=== PATIENT | female | born 1955 | race Caucasian/White ===

== ENCOUNTER → 2019-11-09 14:09 | Outpatient (BNVA) | payer OTHER, SELFPAY | PROVIDERS: PCP Family Medicine; Visit Provider Psychiatry & Neurology Psychiatry | DX: F43.10 Post-traumatic stress disorder, unspecified (principal) | CPT/HCPCS: 80061; 83036; 83721 ==

== ENCOUNTER → 2019-12-08 14:32 | Outpatient (BNVA) | payer MEDICARE, MEDICAID, SELFPAY ==
[2019-12-08 14:31] VITALS: BP 145/94; BMI 36.5
== END ==
PROVIDERS: Visit Provider Family Medicine
DX: I10 Essential (primary) hypertension (principal); E11.9 Type 2 diabetes mellitus without complications; M25.561 Pain in right knee; M25.562 Pain in left knee
CPT/HCPCS: 80053; 82043; 85025

== ENCOUNTER 2019-12-20 13:10 | Outpatient (RCR) | payer MEDICARE, MEDICAID, SELFPAY ==
[2019-12-08 14:31] VITALS: BP 145/94; BMI 36.5
== END 2020-01-08 23:59 | disposition home or self-care (01) ==
LOC: SPT 13:10
PROVIDERS: Referring Provider Family Medicine; Visit Provider Family Medicine
DX: M25.561 Pain in right knee (principal); M25.562 Pain in left knee
CPT/HCPCS: 97110; 97162

== ENCOUNTER → 2019-12-26 14:00 | Outpatient (BNVA) | payer MEDICARE, SELFPAY ==
[2019-12-08 14:31] VITALS: BP 145/94; BMI 36.5
== END ==
PROVIDERS: Visit Provider Psychiatry & Neurology Psychiatry
DX: F33.1 Major depressive disorder, recurrent, moderate (principal); F41.9 Anxiety disorder, unspecified
CPT/HCPCS: 99204

== ENCOUNTER → 2020-01-01 13:47 | Outpatient (BNVA) | payer MEDICARE, SELFPAY ==
[2019-12-08 14:31] VITALS: BP 145/94; BMI 36.5
== END ==
PROVIDERS: Visit Provider Family Medicine
DX: R80.9 Proteinuria, unspecified (principal)
CPT/HCPCS: 82043

== ENCOUNTER → 2020-01-18 14:09 | Outpatient (BNVA) | payer MEDICARE, SELFPAY ==
[2019-12-08 14:31] VITALS: BP 145/94; BMI 36.5
== END ==
PROVIDERS: Visit Provider Family Medicine
DX: E78.5 Hyperlipidemia, unspecified (principal); I10 Essential (primary) hypertension
CPT/HCPCS: 80053

== ENCOUNTER → 2020-02-27 08:34 | Outpatient (BNVA) | payer MEDICARE, SELFPAY ==
[2019-12-08 14:31] VITALS: BP 145/94; BMI 36.5
== END ==
PROVIDERS: Visit Provider Psychiatry & Neurology Psychiatry
DX: M17.11 Unilateral primary osteoarthritis, right knee (principal); E11.65 Type 2 diabetes mellitus with hyperglycemia; F17.211 Nicotine dependence, cigarettes, in remission; F33.1 Major depressive disorder, recurrent, moderate; F41.9 Anxiety disorder, unspecified
CPT/HCPCS: 83036; 99204

== ENCOUNTER → 2020-04-02 08:13 | Outpatient (BNVA) | payer MEDICARE, MEDICAID, SELFPAY ==
[2019-12-08 14:31] VITALS: BP 145/94; BMI 36.5
== END ==
PROVIDERS: Visit Provider Psychiatry & Neurology Psychiatry
DX: F33.1 Major depressive disorder, recurrent, moderate (principal); F41.9 Anxiety disorder, unspecified
CPT/HCPCS: 99214

== ENCOUNTER → 2020-05-23 12:10 | Outpatient (BNVA) | payer MEDICARE, MEDICAID, SELFPAY ==
[2019-12-08 14:31] VITALS: BP 145/94; BMI 36.5
== END ==
PROVIDERS: Visit Provider Family Medicine
DX: F33.1 Major depressive disorder, recurrent, moderate (principal); F41.9 Anxiety disorder, unspecified
CPT/HCPCS: 99214; 87635

== ENCOUNTER 2020-05-28 13:14 | Outpatient (CLI) | payer MEDICARE, MEDICAID, SELFPAY ==
[2019-12-08 14:31] VITALS: BP 145/94; BMI 36.5
--- NOTE | 2020-05-28 13:21 | CT_ITS ---
WS: [id number] LDCT LUNG CANCER SCREENING TECHNIQUE: Noncontrast CT of the chest with coronal and sagittal reformatted images. CLINICAL INFORMATION: HX OF TOBACCO USE COMPARISON: None. DLP: 59.73 mGy.cm DIvol: 1.[address] scans at [facility] use at least one of these dose optimization techniques: automat ed exposure control; mA and/or kV adjustment per patient size (includes targeted exams where dose is matched to clinical indication); or iterative reconstruction. FINDINGS: Mild chronic emphysematous changes. No acute pulmonary infiltrates. No focal pneumonia or pleural flu id. Numerous subcentimeter pulmonary nodules in both lungs more prominent in the mid and lower lungs bilaterally. Largest nodules measure 5 to 6 mm. Small amount of hazy infiltrate or atelectasis in the right lower lobe medially. Aortic calcification. No mediastinal or hilar lymphadenopathy. Coronary calcification. No axillary ly mphadenopathy. Adrenal glands are normal. CT/CT lung screening [id number] IMPRESSION: LUNG-RADS: 3-Probably Benign FOLLOW UP: 6 Month LDCT
--- NOTE | 2020-05-28 14:07 | PFTS_ITS ---
Date of Study:05/28/20 Date of Dictation: MECHANICS: Forced vital capacity (FVC) is normal. Forced expiratory volume in one second (FEV1) is normal. FEV1/FVC is normal. FLOW VOLUME LOOP: Normal. LUNG VOLUMES: Not measured DIFFUSING CAPACITY FOR CARBON MONOXIDE: Not measured. INTERPRETATION: The prebronchodilator spirometry is normal. MTDD
== END 2020-05-28 13:15 | disposition home or self-care (01) ==
LOC: RT 13:18
PROVIDERS: PCP Family Medicine; Visit Provider Family Medicine
DX: Z12.2 Encounter for screening for malignant neoplasm of respiratory organs (principal); Z87.891 Personal history of nicotine dependence; I70.0 Atherosclerosis of aorta
CPT/HCPCS: 71271; 94010

== ENCOUNTER → 2020-06-04 14:09 | Outpatient (BNVA) | payer MEDICARE, MEDICAID, SELFPAY ==
[2019-12-08 14:31] VITALS: BP 145/94; BMI 36.5
== END ==
PROVIDERS: PCP Family Medicine; Referring Provider Family Medicine; Visit Provider Orthopaedic Surgery
DX: M54.9 Dorsalgia, unspecified (principal); S83.006A Unspecified dislocation of unspecified patella, initial encounter; X58.XXXA Exposure to other specified factors, initial encounter; M17.11 Unilateral primary osteoarthritis, right knee; M48.062 Spinal stenosis, lumbar region with neurogenic claudication
CPT/HCPCS: 72110

== ENCOUNTER → 2020-06-19 15:20 | Outpatient (BNVA) | payer MEDICARE, MEDICAID, SELFPAY ==
[2019-12-08 14:31] VITALS: BP 145/94; BMI 36.5
== END ==
PROVIDERS: PCP Family Medicine; Referring Provider Orthopaedic Surgery; Visit Provider Orthopaedic Surgery
DX: M25.561 Pain in right knee (principal); M25.562 Pain in left knee; M17.0 Bilateral primary osteoarthritis of knee
CPT/HCPCS: 73560; 73565

== ENCOUNTER 2020-06-25 14:40 | Outpatient (CLI) | payer MEDICARE, MEDICAID, SELFPAY ==
[2019-12-08 14:31] VITALS: BP 145/94; BMI 36.5
--- NOTE | 2020-06-25 14:44 | MM_ITS ---
WS: [id number] BILATERAL DIGITAL SCREENING MAMMOGRAPHY WITH CAD CLINICAL INFORMATION: SCREENING HISTORY: Screening mammogram. No current complaints. COMPARISON: None. TECHNIQUE: Bilateral CC and MLO views. FINDINGS: Scattered fibroglandular densities bilaterally. A few punctate calcifications. No suspicious focal ma ss, asymmetry, calcifications, or architectural distortion. No evidence of malignancy. MM/[place] [id number] IMPRESSION: BI-RADS: 2-Benign FOLLOW UP: 1 Year Follow-up Recommend return to annual screening mammography.
== END 2020-06-25 14:41 | disposition home or self-care (01) ==
LOC: RADSHAW 14:43
PROVIDERS: PCP Family Medicine; Visit Provider Family Medicine
DX: Z12.31 Encounter for screening mammogram for malignant neoplasm of breast (principal)
CPT/HCPCS: 77067

== ENCOUNTER 2020-07-24 10:57 | Emergency (ER) | payer MEDICARE, MEDICAID, SELFPAY ==
[2019-12-08 14:31] VITALS: BP 145/94; BMI 36.5
[2020-07-24] VITALS (12 sets, daily range): BP systolic 102–143; BP diastolic 52–77; PULSE 78–111; RESP 18–95; TEMP 36.6; O2SAT 93–98
--- NOTE | 2020-07-24 11:23 | XR_ITS ---
WS: [id number] Exam: XR chest 1V portable [id number] Date/Time of Exam: 07/24/2020 11:27 AM Reason For Exam: dizziness Comparison 08/05/2007. Findings: The lungs are clear and fully expanded. Costophrenic angles are sharp. No infiltrates. Bronchovascula r relief appears normal. Cardiac silhouette is unremarkable. Bony elements are intact. XR/XR chest 1V portable [id number] IMPRESSION: Unremarkable chest radiograph.
--- NOTE | 2020-07-24 11:25 | ECG_ITS ---
[facility] Test Date: 2020-07-24 Pat Name: Diana Anders Department: Room: Gender: Female Mending Carrier: : 1955 Requested By: Justine Ventura I Order Number: [id number] Lehta MD: Sandi Martinez M.D. Measurements Intervals [place] Rate: 101 P: 13 AL: 175 QRS: 7 QRSD: 85 T: 205 QT: 314 QTc: 408 Interpretive Statements SINUS TACHYCARDIA ST DEVIATION AND MODERATE T-WAVE ABNORMALITY, CONSIDER ANTEROLATERAL ISCHEMIA [-0.1+ mV T WAVE IN V3-V6] ST DEVIATION AND MODERATE T-WAVE ABNORMALITY, CONSIDER INFERIOR ISCHEMIA [-0.1+ mV T WAVE IN II/aVF] No previous ECG available for comparison Electronically Signed On 07-24-2020 17:45:59 CDT by Sandi Martinez M.D. [id number]
--- NOTE | 2020-07-24 11:26 | W.ED.GENADLT ---
HPI - General Adult General: Chief complaint: General Medical Stated complaint: WEAKNESS, N/V, HYPERTENSION Time Seen by Provider: 07/24/20 11:00 Source: patient Mode of arrival: ambulatory Limitations: no limitations History of Present Illness: HPI narrative: This is a 65-year-old female patient with a history of hypertension diabetes mellitus, depression, prior ischemic strokes, who presents to the emergency department with dizziness of 1 weeks duration. She states that the dizziness is intermittent and denies room spinning. It is more often when she rises from a sitting position that she gets dizzy. She denies being outside a lot or being dehydrated. She denies any chest pain, but has some shortness of breath. She denies any long distance traveling. No headaches. MD complaint: Dizziness Onset (ago): week(s) (1) Associated symptoms: Reports nausea, short of breath and weakness; Deny chest pain, confusion, cough, diaphoresis, decreased appetite, dyspnea, fevers/chills, headache(s), malaise, rash, palpitations, seizures, syncope or vomiting Treatments prior to arrival: none Review of Systems General: Reports: 10 or more systems reviewed and unremarkable except in HPI and below Const: Denies: malaise or diaphoresis Card: Denies: chest pain, palpitations or syncope Resp: Denies: dyspnea GI: Reports: nausea; Denies: vomiting Skin/Breast: Denies: rash Neuro: Denies: headache(s) or confusion [facility] ED PFSH: Medical History Anxiety Arthritis COPD (chronic obstructive pulmonary disease) Depression Essential hypertension Post traumatic stress disorder Stroke 2015, 2016 Surgical History History of D&C Family History Father Hypertension CAD (coronary artery disease) Diabetes Mother CAD (coronary artery disease) Hypertension Hyperlipidemia Grandfather Hypertension Hyperlipidemia Sister Diabetes Other Stroke Social History Smoking and tobacco status: former smoker Alcohol intake: former Current gender identity: Female Physical Exam Const: COMMON NORMALS: no acute distress, average body habitus, patient oriented x3, no limitations, healthy appearing, alert and well nourished HENMT: COMMON NORMALS: normocephalic, atraumatic and moist oral mucous membranes HEAD & SCALP: normocephalic and atraumatic Eye: COMMON NORMALS: Equal, round and reactive pupils present, EOMs intact bilaterally, conjunctivae normal and no scleral icterus CONJUNCTIVA: Yes conjunctivae normal PUPIL: Yes Equal, round and reactive pupils present Neck/C-Spine: COMMON NORMALS: no meningeal signs and no JVD Resp: COMMON NORMALS: normal respiratory effort, No retractions, No use of accessory muscles, clear to auscultation bilaterally and percussion normal AUSCULTATION: clear to auscultation bilaterally PERCUSSION: percussion normal Cardio: COMMON NORMALS: no JVD, regular rate, regular rhythm, S1 normal heart sound present, S2 normal heart sound present, No gallops present (Cardio), No clicks present (Cardio), No murmurs present (Cardio), No rub (Cardio) and Peripheral pulses 2+ throughout RATE: regular rate RHYTHM: regular rhythm HEART SOUNDS: S1 normal heart sound present and S2 normal heart sound present PERIPHERAL PULSES: Peripheral pulses 2+ throughout GI: COMMON NORMALS: Normal to inspection, nondistended, normoactive bowel sounds present, Soft to palpation, non-tender, No hepatosplenomegaly present, no masses and no bruits PALPATION: Yes Soft to palpation and Yes No hepatosplenomegaly present Extremity: COMMON NORMALS: normal to inspection, full ROM, capillary refill normal, no calf tenderness and no pedal edema Neuro: COMMON NORMALS: patient oriented x3 SENSORIUM/ORIENTATION: Yes alert MENINGEAL SIGNS: Yes no meningeal signs Course Reevaluation(s): Reevaluation #1: Discussed labs and imaging with her offered hospital admission. She declined. She wants to try outpatient therapy. She has an appointment with her PCP in 1 week. She will follow-up with. She is advised to drink lots of water. Time: 14:13 Vital Signs: Vital signs: Vital Signs Temperature 97.9 F 07/24/20 15:46 Pulse Rate 87 07/24/20 15:46 Respiratory Rate 18 07/24/20 15:46 Blood Pressure 125/66 07/24/20 15:46 Pulse Oximetry 96 07/24/20 15:46 MDM - General Adult MDM Narrative: Medical decision making narrative: 65-year-old female patient who presents to the emergency department with nausea vomiting, weakness. Evaluation in the emergency department showed she has a UTI, acute kidney injury and she is mildly dehydrated. She was given a dose of intravenous ceftriaxone in the emergency department. She also had significantly elevated TSH. Her 2-hour delta troponin was flat. She was offered hospital admission but she declined and wants to follow-up with her primary care provider. Medical Records: Attestation: I reviewed the patient's medical records. Lab Data: Attestation: I reviewed the patient's lab results. Labs: Lab Results 07/24/20 07/24/20 07/24/20 Range/Units 10:45 10:45 10:45 WBC 18.3 H (4.0-10.0) 10^3/ uL RBC 4.87 (4.1-5.3) 10^6/u L Hgb 16.1 H (11.5-15.3) g/dL Hct 45.4 (37.0-47.0) % MCV 93.2 (81-99) fL MCH 33.1 (28.0-34.0) pg MCHC 35.5 (30.0-36.0) g/dL RDW 13.0 (12.1-15.1) % Plt Count 315 (130-400) 10^3/c mm MPV 12.8 H (7.4-10.4) fL Neut % (Auto) 78.8 % Lymph % (Auto) 14.3 % [place] % (Auto) 5.5 % Eos % (Auto) 0.1 % Baso % (Auto) 0.3 % Neut # (Auto) 14.43 H (1.8-7.7) 10^3/u L Lymph # (Auto) 2.6 (0.8-4.8) 10^3/u L [place] # (Auto) 1.0 H (0.2-0.9) 10^3/u L Eos # (Auto) 0.0 (0.0-0.8) 10^3/u L Baso # (Auto) 0.1 (0.0-0.1) 10^3/u L Nucleated RBC % (a uto) 0 % Nucleated RBCs # 0.0 /100WBC Sodium 142 (136-145) mmol/L Potassium 3.6 (3.5-5.1) mmol/L Chloride 99 (98-107) mmol/L Carbon Dioxide 17 L (22-29) mmol/L Anion Gap 29.6 H (5-19) BUN 26 H (8-23) mg/dL Creatinine 1.6 H (0.5-0.9) mg/dL GFR Calculation 32.5 L (90-130) mL/min Glucose 181 H (65-115) mg/dL Calculated Osmolal ity 303 H (285-295) mOsm/k g Calcium 11.1 H (8.5-10.5) mg/dL Total Bilirubin 0.7 (0.15-1.2) mg/dL AST 22 (0-32) U/L ALT 32 (0-33) U/L Alkaline Phosphata se 81 (35-105) IU/L Creatine Kinase 87 (26-192) U/L Troponin T Baselin e 20 H (0-10) ng/L Troponin T 120 Min algaaciq (0-10) ng/L Delta Troponin T (0-10) ABS# C-Reactive Protein 3.3 (0.0-4.9) mg/L NT-Pro-B Natriuret Pep 57 (0-125) pg/mL Total Protein 7.3 (6.6-8.7) g/dL Albumin 4.9 (3.5-5.2) g/dL Globulin 2.4 (1.3-4.6) g/dL Lipase 45 (13-60) U/L TSH 8.64 H (0.27-4.20) uIU/ mL Urine Color (Yellow) Urine Appearance (CLEAR) Urine pH (5-7) Ur Specific Gravit y (1.005-1.030) Urine Protein (Negative) Urine Glucose (UA) (Normal) Urine Ketones (Negative) Urine Blood (Negative) Urine Nitrate (Negative) Urine Bilirubin (Negative) Urine Urobilinogen (Negative) mg/dL Ur Leukocyte Blanca ase (Negative) Urine RBC (0-2) /hpf Urine WBC (0-5) /hpf Ur Squamous Epith Cells (0-5) /hpf Amorphous Sediment Urine Bacteria (NONE) /hpf 07/24/20 07/24/20 Range/Units 12:54 13:42 WBC (4.0-10.0) 10^3/ uL RBC (4.1-5.3) 10^6/u L Hgb (11.5-15.3) g/dL Hct (37.0-47.0) % MCV (81-99) fL MCH (28.0-34.0) pg MCHC (30.0-36.0) g/dL RDW (12.1-15.1) % Plt Count (130-400) 10^3/c mm MPV (7.4-10.4) fL Neut % (Auto) % Lymph % (Auto) % [place] % (Auto) % Eos % (Auto) % Baso % (Auto) % Neut # (Auto) (1.8-7.7) 10^3/u L Lymph # (Auto) (0.8-4.8) 10^3/u L [place] # (Auto) (0.2-0.9) 10^3/u L Eos # (Auto) (0.0-0.8) 10^3/u L Baso # (Auto) (0.0-0.1) 10^3/u L Nucleated RBC % (a uto) % Nucleated RBCs # /100WBC Sodium (136-145) mmol/L Potassium (3.5-5.1) mmol/L Chloride (98-107) mmol/L Carbon Dioxide (22-29) mmol/L Anion Gap (5-19) BUN (8-23) mg/dL Creatinine (0.5-0.9) mg/dL GFR Calculation (90-130) mL/min Glucose (65-115) mg/dL Calculated Osmolal ity (285-295) mOsm/k g Calcium (8.5-10.5) mg/dL Total Bilirubin (0.15-1.2) mg/dL AST (0-32) U/L ALT (0-33) U/L Alkaline Phosphata se (35-105) IU/L Creatine Kinase (26-192) U/L Troponin T Baselin e (0-10) ng/L Troponin T 120 Min algaaciq 15.59 H (0-10) ng/L Delta Troponin T -4.41 L (0-10) ABS# C-Reactive Protein (0.0-4.9) mg/L NT-Pro-B Natriuret Pep (0-125) pg/mL Total Protein (6.6-8.7) g/dL Albumin (3.5-5.2) g/dL Globulin (1.3-4.6) g/dL Lipase (13-60) U/L TSH (0.27-4.20) uIU/ mL Urine Color Yellow (Yellow) Urine Appearance Hazy A (CLEAR) Urine pH 5 (5-7) Ur Specific Gravit y 1.015 (1.005-1.030) Urine Protein Trace (Negative) Urine Glucose (UA) Norm (Normal) Urine Ketones Negative (Negative) Urine Blood 2+ H (Negative) Urine Nitrate Negative (Negative) Urine Bilirubin 1+ H (Negative) Urine Urobilinogen Norm (Negative) mg/dL Ur Leukocyte Blanca ase 2+ H (Negative) Urine RBC 15-25 H (0-2) /hpf Urine WBC 25-40 H (0-5) /hpf Ur Squamous Epith Cells 0-4 H (0-5) /hpf Amorphous Sediment Not Reportable Urine Bacteria 4+ H (NONE) /hpf Imaging Data^: CT Head: Attestation: I personally reviewed and interpreted this imaging study as follows: Radiologist's impression: [address] [id number] Scan ReportSigned Patient: Diana Anders #: [id number]: 6Acct#:[id number]/Sex: 65 / FADM Date: 07/24/20Loc: ERRoom/Bed:Attending Dr: Ordering Provider/Ordering MD: Justine Ventura MD, [facility] Date of Service: 07/24/20 Procedure(s): CT head wo con* [id number] Accession Number(s): [id number] Report Number: [id number] WS: [id number] CT HEAD TECHNIQUE: Noncontrast CT of the head obtained from the skullbase to the vertex. CLINICAL INFORMATION: dizziness, confusion, prior CVA COMPARISON: None. DLP: 957.[address] scans at [facility] use at least one of these dose optimization techniques: automated exposure control; mA and/or kV adjustment per patient size (includes targeted exams where dose is matched to clinical indication); or iterative reconstruction. FINDINGS: No evidence of intracranial hemorrhage or mass effect. Ventricular system and basal cisterns are patent. Mild small vessel changes with mild parenchymal volume loss. No extra-axial fluid collections. No evidence of mass or mass effect. Normal bingham-white differentiation. Paranasal sinuses and mastoid air cells are well aerated. .Normal visualized soft tissues. CT/CT head wo con* [id number] IMPRESSION: 1. No evidence of intracranial hemorrhage or mass effect. 2. Mild small vessel changes. Mild parenchymal volume loss. 3. No acute intracranial findings. Dictated By:Kem Lauren MDSigned By:Kem Lauren MDSigned Date/Time:07/24/20 1204DD/ 1201 CXR: Attestation: I personally reviewed and interpreted this imaging study as follows: Radiologist's impression: [address] [address]HQif ReportSigned Patient: Diana Anders #: [id number]: 1955cct#:[id number]/Sex: 65 / FADM Date: 07/24/20Loc: ERRoom/Bed:Attending Dr: Ordering Provider/Ordering MD: Justine Ventura MD, [facility] Date of Service: 07/24/20 Procedure(s): XR chest 1V portable [id number] Accession Number(s): [id number] Report Number: [id number] WS: [id number] Exam: XR chest 1V portable [id number] Date/Time of Exam: 07/24/2020 11:27 AM Reason For Exam: dizziness Comparison 08/05/2007. Findings: The lungs are clear and fully expanded. Costophrenic angles are sharp. No infiltrates. Bronchovascular relief appears normal. Cardiac silhouette is unremarkable. Bony elements are intact. XR/XR chest 1V portable [id number] IMPRESSION: Unremarkable chest radiograph. Dictated By:Teagueigned By:Kortney Busby Date/Time:07/24/20 1203DD/ 1202 EKG Data^: EKG 1: Attestation: I personally reviewed and interpreted this EKG as follows: EKG interpretation date: 07/24/20 EKG interpretation time: 11:34 Prior EKG tracings: not available for review Interpretation: Sinus tachycardia. Heart rate 101 bpm. To review version in leads II and aVF. Biphasic T wave in leads V3 to V6. Computer generated interpretation: Chest X-Ray 07/24/20 11:23 IMPRESSION: Unremarkable chest radiograph. Head CT 07/24/20 11:30 IMPRESSION: 1. No evidence of intracranial hemorrhage or mass effect. 2. Mild small vessel changes. Mild parenchymal volume loss. 3. No acute intracranial findings. EKG 2: Attestation: I personally reviewed and interpreted this EKG as follows: EKG interpretation date: 07/24/20 EKG interpretation time: 13:34 Prior EKG tracings: available for review Interpretation: Sinus rhythm. Heart rate [address] changes. No significant change from earlier today. Computer generated interpretation: Chest X-Ray 07/24/20 11:23 IMPRESSION: Unremarkable chest radiograph. Head CT 07/24/20 11:30 IMPRESSION: 1. No evidence of intracranial hemorrhage or mass effect. 2. Mild small vessel changes. Mild parenchymal volume loss. 3. No acute intracranial findings. Discharge Plan Discharge Patient Disposition: Home Clinical Impression: JUAN (acute kidney injury), Acute dehydration UTI (urinary tract infection) Qualifiers: Urinary tract infection type: acute cystitis Hematuria presence: with hematuria Qualified Code(s): N30.01 - Acute cystitis with hematuria Leucocytosis Qualifiers: Leukocytosis type: unspecified Qualified Code(s): D72.829 - Elevated white blood cell count, unspecified Hypothyroidism Qualifiers: Hypothyroidism type: unspecified Qualified Code(s): E03.9 - Hypothyroidism, unspecified Condition: Stable Prescriptions: New Augmentin 500-125 mg tablet 1 tab PO BID Qty: 10 RF: 0 Continued atorvastatin 80 mg tablet 80 mg PO BEDTIME@2200 RF: 0 ginseng 100 mg Capsule 100 mg PO DAILY@1000 RF: 0 potassium 99 mg Tablet 99 mg PO DAILY@1000 RF: 0 amlodipine 10 mg tablet 10 mg PO DAILY@2200 RF: 0 hydrochlorothiazide 25 mg Tablet 25 mg PO DAILY@1000 RF: 0 lisinopril 40 mg tablet 40 mg PO DAILY@2200 RF: 0 Voltaren 1 % Gel 2 g TOPICAL QID PRN (Reason: Pain) RF: 0 cyanocobalamin (vitamin B-12) 1,000 mcg/mL Drops 1,000 mcg PO DAILY@1000 RF: 0 venlafaxine 75 mg capsule,extended release 24hr 75 mg PO DAILY@1000 RF: 0 tramadol 50 mg tablet 50 mg PO DAILY@1000 RF: 0 metformin 500 mg tablet extended release 24 hr 500 mg PO BID@1000,2200 RF: 0 aspirin 81 mg Tablet,Chewable 81 mg PO DAILY@1000 RF: 0 Discharge Orders: Discharge ED (Routine); Ordered 07/24/20 Ordered By: Justine Ventura Referrals: Felix Dorado MD [Primary Care Provider] - 4-7 days Discharge Diet: Usual diet Discharge Activity: Increase activity as tolerated Patient Instructions: Dehydration (ED), Acute Kidney Injury (GEN), Urinary Tract Infection in Women (ED), Hypothyroidism (ED) Activity Restrictions/Additional Instructions: Return for any new or worsening symptoms. Follow-up with your primary care provider as scheduled in 1 week for reevaluation of your kidney function to make sure it is improving, there would also see if you need to be started on thyroid medications. Take the antibiotic as prescribed. Drink plenty of water to keep well-hydrated and to improve your kidney function. 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
--- NOTE | 2020-07-24 11:30 | CT_ITS ---
WS: [id number] CT HEAD TECHNIQUE: Noncontrast CT of the head obtained from the skullbase to the vertex. CLINICAL INFORMATION: dizziness, confusion, prior CVA COMPARISON: None. DLP: 957.[address] scans at [facility] use at least one of these dose optimization techniques: automat ed exposure control; mA and/or kV adjustment per patient size (includes targeted exams where dose is matched to clinical indication); or iterative reconstruction. FINDINGS: No evidence of intracranial hemorrhage or mass effect. Ventricular system and basal cisterns are ponce nt. Mild small vessel changes with mild parenchymal volume loss. No extra-axial fluid collections. No evidence of mass or mass effect. Normal bingham-white differentiation. Paranasal sinuses and mastoid air cells are well aerated. .Normal visualized soft tissues. CT/CT head wo con* [id number] IMPRESSION: 1. No evidence of intracranial hemorrhage or mass effect. 2. Mild small vessel changes. Mild parenchymal volume loss. 3. No acute intracranial findings.
[2020-07-24 11:55] LABS: Basophils # 0.1 10^3/uL (0.0-0.1); Basophils % 0.3 %; Eosinophils % 0.1 %; Hematocrit 45.4 % (37.0-47.0); Hemoglobin 16.1 g/dL (11.5-15.3); Lymphocytes # 2.6 10^3/uL (0.8-4.8); Lymphocytes % 14.3 %; Mean Corpuscular HGB Conc 35.5 g/dL (30.0-36.0); Mean Corpuscular Hemoglobin 33.1 pg (28.0-34.0); Mean Corpuscular Volume 93.2 fL (81-99); Mean Platelet Volume 12.8 fL (7.4-10.4); Monocytes % 5.5 %; Neutrophils # 14.43 10^3/uL (1.8-7.7); Neutrophils % 78.8 %; Nucleated Red Blood Cells % 0 %; Platelet Count 315 10^3/cmm (130-400); Red Blood Count 4.87 10^6/uL (4.1-5.3); White Blood Count 18.3 10^3/uL (4.0-10.0)
[2020-07-24 12:10] LABS: Troponin(5th) Baseline 20 ng/L (0-10)
[2020-07-24 12:21] LABS: Alanine Aminotransferase 32 U/L (0-33); Albumin Level 4.9 g/dL (3.5-5.2); Alkaline Phosphatase 81 IU/L (35-105); Anion Gap 29.6 (5-19); Aspartate Amino Transferase 22 U/L (0-32); Blood Urea Nitrogen 26 mg/dL (8-23); C Reactive Protein 3.3 mg/L (0.0-4.9); Calcium 11.1 mg/dL (8.5-10.5); Carbon Dioxide 17 mmol/L (22-29); Chloride 99 mmol/L (98-107); Creatine Phosphokinase 87 U/L (26-192); Globulin 2.4 g/dL (1.3-4.6); Glomerular Filtration Rate 32.5 mL/min (90-130); Glucose 181 mg/dL (65-115); Lipase 45 U/L (13-60); NT Pro B Type Natriuretic Pept 57 pg/mL (0-125); Osmolality Calculated 303 mOsm/kg (285-295); Potassium 3.6 mmol/L (3.5-5.1); Sodium 142 mmol/L (136-145); Thyroid Stimulating Hormone 8.64 uIU/mL (0.27-4.20); Total Bilirubin 0.7 mg/dL (0.15-1.2); Total Protein 7.3 g/dL (6.6-8.7)
--- NOTE | 2020-07-24 13:25 | ECG_ITS ---
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 Measurements Intervals [place] Rate: 86 P: 58 MO: 180 QRS: 0 QRSD: 94 T: 128 QT: 348 QTc: 417 Interpretive Statements SINUS RHYTHM MODERATE T-WAVE ABNORMALITY, CONSIDER ANTEROLATERAL ISCHEMIA [-0.1+ mV T WAVE IN V3-V6] Compared to ECG 07/24/2020 11:34:38 Sinus tachycardia no longer present T-wave abnormality still present Possible ischemia still present Electronically Signed On 07-24-2020 17:51:14 CDT by Sandi Martinez M.D. [id number]
[2020-07-24 13:31] LABS: Troponin 5 2HR 15.59 ng/L (0-10)
[2020-07-24 13:33] LABS: Troponin 5 2HR Delta -4.41 ABS# (0-10)
[2020-07-24 14:07] LABS: Blood Urine 2+ (Negative); Glucose Urine UA Norm (Normal); Ketones Urine Negative (Negative); Protein Urine Trace (Negative); Specific Gravity, Urine 1.015 (1.005-1.030); Urine Appearance Hazy (CLEAR); Urine Color Yellow (Yellow); pH Urine 5 (5-7)
[2020-07-24 14:08] LABS: Add Urine Microscopic? YES; Bilirubin Urine 1+ (Negative); Leukocyte Esterase Urine 2+ (Negative); Nitrate Urine Negative (Negative); Urobilinogen Urine Norm (Negative)
[2020-07-24 14:22] LABS: RBC Urine 15-25 /hpf (0-2); Squamous Epithelial Cell Urine 0-4 /hpf (0-5); WBC Urine 25-40 /hpf (0-5)
[2020-07-24 14:24] LABS: Add Urine Culture? Yes; Bacteria Urine 4+ /hpf
[2020-07-24] MEDS: cefTRIAXone 1,000 MG in sodium chloride 0.9% (plus) 50 ML 100 MG IV (14:26)
== END 2020-07-24 15:35 | disposition home or self-care (01) ==
PROVIDERS: Emergency Provider Family Medicine; PCP Family Medicine
DX: N30.01 Acute cystitis with hematuria (principal); D72.829 Elevated white blood cell count, unspecified; E03.9 Hypothyroidism, unspecified; E86.0 Dehydration; N17.9 Acute kidney failure, unspecified; Z79.82 Long term (current) use of aspirin; Z79.84 Long term (current) use of oral hypoglycemic drugs; J44.9 Chronic obstructive pulmonary disease, unspecified; I10 Essential (primary) hypertension; Z86.73 Personal history of transient ischemic attack (TIA), and cerebral infarction without residual deficits; Z87.891 Personal history of nicotine dependence
CPT/HCPCS: 70450; 71045; 80053; 81001; 82550; 83690; 83880; 84443; 84484; 85025; 86140; 87086; 93005; 96365; 99284; J0696

== ENCOUNTER → 2020-08-27 12:59 | Outpatient (BNVA) | payer MEDICARE, MEDICAID, OTHER, SELFPAY ==
[2019-12-08 14:31] VITALS: BP 145/94; BMI 36.5
== END ==
PROVIDERS: PCP Family Medicine; Visit Provider Psychiatry & Neurology Psychiatry
DX: F33.1 Major depressive disorder, recurrent, moderate (principal); F41.9 Anxiety disorder, unspecified
CPT/HCPCS: 99214

== ENCOUNTER 2020-08-29 13:06 | Outpatient (CLI) | payer MEDICARE, MEDICAID, SELFPAY ==
[2019-12-08 14:31] VITALS: BP 145/94; BMI 36.5
--- NOTE | 2020-08-29 13:18 | USCV_ITS ---
Diana Anders Age: 65 Gender: F : 1955 Exam Date: 08/29/2020 13:26 Ordering Phys: Felix Dorado MD Technologist: Jessenia Phelps Exam Location: [facility] [place] Indication: 2 CVAS Risk Factors: Previous Vascular Surgery: Right Brachial BP: / Left Brachial BP: / Right Left Velocity (cm/s) Spectral Plaque Velocity (cm/s) Spectral Plaque Syst/Diast Broadening Syst/Diast Broadening 120.20/33.10 Prox CCA 135.20/ 47.10 108.10/36.40 Mid CCA 71.90 / 26.00 94.80/ 30.90 Hetro Distal CCA 71.90 / 22.30 Hetro 51.30/ 17.10 Prox ICA 0.00 / 36.55 67.50/ 29.10 Mid ICA 70.90 / 27.35 64.70/ 25.00 Distal ICA 77.00 / 28.65 108.10 ECA 110.40 0.62 ICA/CCA 1.33 Antegrade Vertebral Antegrade 45.40/ 17.60 cm/s 48.50/ 15.70 cm/s Tri Subclavian Bi 117.8 68.50 0 FINDINGS Moderate heterogeneous plaques of the left bifurcation and proximal internal carotid artery. Mild to moderate heterogeneous plaques of the right bifurcation and proximal internal carotid artery. Intimal thickening in the common carotid arteries bilaterally. Antegrade flow in the vertebral arteries bilaterally. Normal Doppler flow velocities in the external carotid and subclavian arteries arteries bilaterally. CONCLUSIONS Moderate heterogeneous plaques of the left bifurcation and proximal internal carotid artery with elevated velocities, consistent with less than 50% stenosis. Mild to moderate heterogeneous plaques of the right bifurcation and proximal internal carotid artery with Doppler features suggesting less than 50% stenosis. No significant stenosis in the vertebral, subclavian or external carotid arteries No previous studies are available for comparison. Dr Sandi Martinez MD [facility] (Electronically Signed) Final Date: 29 August 2020 20:47 S
== END 2020-08-29 13:07 | disposition home or self-care (01) ==
LOC: RAD 13:10
PROVIDERS: PCP Family Medicine; Visit Provider Family Medicine
DX: I63.9 Cerebral infarction, unspecified (principal); I65.23 Occlusion and stenosis of bilateral carotid arteries
CPT/HCPCS: 93880

== ENCOUNTER 2020-10-09 07:46 | Outpatient (CLI) | payer MEDICARE, MEDICAID, SELFPAY ==
[2019-12-08 14:31] VITALS: BP 145/94; BMI 36.5
[2020-10-09 08:08] VITALS: BMI 30.4
--- NOTE | 2020-10-09 08:09 | ECG_ITS ---
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 Interpretive Statements NAME OF STUDY: LEXISCAN SESTAMIBI STRESS TEST INDICATION: Chest Pain, PROCEDURE: At the baseline, the EKG revealed normal sinus rhythm with a poor R wave progression. Nonspecific ST-T changes. Nonspecific IVCD. The baseline blood pressure was 109/67 mm Hg with a heart rate of83 beats/min. Lexiscan was infused over a period of 20 seconds. A total of 0.4 milligrams of Lexiscan was infused. The stress phase was continued for a total of 5 minutes. Heart rate at the end of the stress phase was 99 with a blood pressure 115/64. The EKG at the peak infusion revealed no significant changes. Sestamibi was injected 20 seconds after the Lexiscan infusion. Blood pressure at the end of the recovery phase was 111/67 with a heart rate of 96 per minute. CONCLUSION: 1. No significant EKG changes with the LexiScan infusion 2. No LexiScan induced chest pain or cardiac arrhythmia 3. Normal blood pressure and heart rate response 4. Sestamibi/sestamibi perfusion scan pending; see separate report. Electronically Signed On 10-09-2020 13:45:15 CDT by Sandi Martinez M.D. [id number]
--- NOTE | 2020-10-09 08:10 | NMCV_ITS ---
NM chanel perf SPECT r/s* [id number] Diana Anders Age: 65 Gender: F : 1955 Exam Date: 10/09/2020 08:10 Ordering Phys: Sandi Martinez MD ([email or web address]) Technologist: EFRAÍN Crespo Exam Location: [facility] [place] Indications: SHORTNESS OF BREATH STRESS TEST Please see separate stress test report in [facility] for full findings IMAGE PROTOCOL Rest/Stress 1 Lexiscan Day Radiopharmaceutical Dose (mCi) Administration Site Administered by Rest: Tc-99m 10.9 IV EFRAÍN Crespo Sestamibi Stress:Tc-99m 31.1 IV EFRAÍN Crespo Sestamibi Rest: 09-Oct-2020 60 Discovery 630 Stress: 09-Oct-2020 30 Discovery 630 0.4mg Lexiscan. Supine position only as patient was unable to lay prone. SPECT RESULTS Technical Quality: Excellent Raw Data Analysis: Breast attenuation Image Corrections: No attenuation or motion correction applied Summed Stress Score: 1 Summed Rest Score: 0 Summed Difference Score: 1 PERFUSION FINDINGS Small area of slightly decreased tracer uptake was noted in the mid inferolateral region. Some reversibility was noted in this region. FUNCTIONAL RESULTS (calculated via Gated SPECT) Stress Image LV EF (%): 83 Stress EDV (mL):52 TID: 0.65 Stress ESV (mL):9 FUNCTIONAL FINDINGS: Segmental wall motion analysis revealed no gross wall motion abnormalities IMPRESSIONS 1. Myocardial perfusion imaging revealing a small area of reversible defect in the inferolateral region with the polar plot, suggestive of ischemia in the circumflex distribution . However with the SPECT imaging, no significant reversible defects were noted. 2. Normal LV ejection fraction of 83%. 3. LV wall motion analysis revealing no gross wall motion abnormalities. 4. Normal LV volume. No similar previous studies are available for comparison Dr Sandi Martinez MD FAC (Electronically Signed) Final Date: 09 October 2020 16:48 S
--- NOTE | 2020-10-09 08:10 | USCV_ITS ---
Diana Anders Age: 65 Gender: F : 1955 Exam Date: 10/09/2020 08:19 Ordering Phys: Sandi Martinez MD ([email or web address]) Technologist: Jessenia Phelps [place] [facility] [place]ication: CLEARANCE FOR SURG BP: / HR: 96 Rhythm: Sinus Technical Quality: Adequate MEASUREMENTS (Male / Female) Normal Values 2D ECHO LV Diastolic Diameter PLAX 3.4 cm 4.2 - 5.9 / 3.9 - 5.3 cm LV Systolic Diameter PLAX 2.3 cm LV Chamber Size 3.6 cm IVS Diastolic Thickness 1.2 cm 0.6 - 1.0 / 0.6 - 0.9 cm IVS Systolic Thickness 1.5 cm LVPW Diastolic Thickness 1.5 cm 0.6 - 1.0 / 0.6 - 0.9 cm LVPW Systolic Thickness 1.6 cm RV Chamber Size 3.6 cm LVOT Diameter 2.1 cm LV Ejection Fraction 2D Teich 61.0 % LV Ejection Fraction MOD 2C 28.2 % LV Ejection Fraction 2C AL 28.7 % LA Diameter 2.9 cm LA Width 2.2 cm LA Height 3.4 cm RA Width 3.5 cm RA Height 4.2 cm Aorta at Sinotubular Diameter 3.0 cm M-MODE LV Diastolic Diameter MM 4.0 cm 4.2 - 5.9 / 3.9 - 5.3 cm LV Systolic Diameter MM 2.0 cm LV Ejection Fraction MM Teich 82.8 % IVS Diastolic Thickness MM 1.2 cm 0.6 - 1.0 / 0.6 - 0.9 cm IVS Systolic Thickness MM 1.5 cm LVPW Diastolic Thickness MM 1.6 cm 0.6 - 1.0 / 0.6 - 0.9 cm LVPW Systolic Thickness MM 2.1 cm Aortic Annulus Diameter 3.4 cm LA Ao Ratio MM 0.8 DOPPLER AV Peak Velocity 144.0 cm/s LVOT Peak Velocity 91.0 cm/s AV Area Cont Eq vti 2.9 cm squared AV Area Cont Eq pk 2.2 cm squared MV Area PHT 11.0 cm squared Mitral E to A Ratio 0.9 MV E' Velocity 43.0 cm/s Mitral E to MV E' Ratio 9.9 Mitral E to LV E' Lateral Ratio 8.7 Mitral E to LV E' Septal Ratio 11.7 TR Peak Velocity 165.7 cm/s TR Peak Gradient 11.0 mmHg TR Mean Velocity 115.8 cm/s TR Mean Gradient 6.6 mmHg TR Velocity Time Integral 32.3 cm Right Atrial Pressure 3.0 mmHg Pulmonary Artery Systolic Pressu 14.0 mmHg FINDINGS Left Ventricle Normal left ventricular size and systolic function, EF 61%.mild left ventricular hypertrophy. No regional wall motion abnormalities. Right Ventricle The right ventricle is normal in size and function. Right Atrium The right atrium is normal in size. Left Atrium The left atrium is normal in size. Mitral Valve No gross abnormalities noted Aortic Valve Thickened aortic valve. Tricuspid Valve No gross abnormalities noted Pulmonic Valve Pulmonic valve not well visualized. Pericardium Normal pericardium without effusion. Aorta Normal ascending aorta dimension. CONCLUSIONS Normal left ventricular size and systolic function, EF 61%. Mild left ventricular hypertrophy. No regional wall motion abnormalities. Thickened aortic valve. Normal cardiac chamber sizes. No significant stenotic or regurgitant lesions. There is no pericardial effusion. No previous study is available for comparison. Dr Sandi Martinez MD [facility] (Electronically Signed) Final Date: 09 October 2020 18:41 S
[2020-10-09] MEDS: regadenoson 0.4 Mg/5 ml Syringe IVP (10:10)
[2020-10-09 10:15] VITALS: BP 111/67; PULSE 96
== END 2020-10-09 07:47 | disposition home or self-care (01) ==
PROVIDERS: PCP Family Medicine; Visit Provider Internal Medicine Cardiovascular Disease
DX: R94.31 Abnormal electrocardiogram [ECG] [EKG] (principal); R06.00 Dyspnea, unspecified; R06.02 Shortness of breath; I35.8 Other nonrheumatic aortic valve disorders; R07.9 Chest pain, unspecified
CPT/HCPCS: 78452; 93017; 93306; A9500; J2785

== ENCOUNTER → 2020-10-22 14:25 | Outpatient (BNVA) | payer MEDICARE, MEDICAID, SELFPAY ==
[2019-12-08 14:31] VITALS: BP 145/94; BMI 36.5
== END ==
PROVIDERS: PCP Family Medicine; Visit Provider Psychiatry & Neurology Psychiatry
DX: F33.1 Major depressive disorder, recurrent, moderate (principal); F41.9 Anxiety disorder, unspecified
CPT/HCPCS: 99214

== ENCOUNTER → 2020-10-25 10:01 | Outpatient (BNVA) | payer MEDICARE, MEDICAID, SELFPAY ==
[2019-12-08 14:31] VITALS: BP 145/94; BMI 36.5
== END ==
PROVIDERS: PCP Family Medicine; Visit Provider Surgery
DX: Z20.822 Contact with and (suspected) exposure to COVID-19 (principal); Z12.11 Encounter for screening for malignant neoplasm of colon
CPT/HCPCS: 87635

== ENCOUNTER 2020-10-30 06:34 | Day surgery (SDC) | payer MEDICARE, MEDICAID, SELFPAY ==
[2019-12-08 14:31] VITALS: BP 145/94; BMI 36.5
[2020-10-28 08:41] VITALS: BMI 31.9
--- NOTE | 2020-10-30 06:45 | P.HP_ITS ---
Same Day Surgery H&P Indication for Procedure/HPI DATE OF PROCEDURE: October 30, 2020 CHIEF COMPLAINT/INDICATIONFOR SURGICAL PROCEDURE: Screening colonoscopy PREOP DIAGNOSIS: Screening colonoscopy PLANNED PROCEDRUE: Operation Date: 10/30/20 08:30 Proposed Procedures p Colonoscopy 47025 z12.11(Not Applicable) - Nick Boggs MD This is a pleasant 65 years old female patient referred to my practice for screening colonoscopy. Patient denies any history of bleeding per rectum or personal or family history of colon cancer or nonintentional weight loss. Patient never had a screening colonoscopy before. ROS All systems have been reviewed negative except as per the above or per problem list. Medications/Allergies* Home Medications Medication Instructions Recorded Confirmed Type amlodipine 10 mg PO DAILY@219907/24/20 10/30/20 History aspirin 81 mg PO DAILY@99907/24/20 10/30/20 History atorvastatin 80 mg PO BEDTIME@219907/24/20 10/30/20 History cyanocobalamin (vitamin B-12) 1,000 mcg PO DAILY@99907/24/20 10/30/20 History diclofenac sodium [Voltaren] 2 g TOPICAL QID PRN 07/24/20 10/30/20 History ginseng 100 mg PO DAILY@99907/24/20 10/30/20 History hydrochlorothiazide 25 mg PO DAILY@99907/24/20 10/30/20 History lisinopril 40 mg PO DAILY@219907/24/20 10/30/20 History metformin 500 mg PO BID@1000,219907/24/20 10/30/20 History potassium 99 mg PO DAILY@99907/24/20 10/30/20 History tramadol 50 mg tablet 50 mg PO BID tab 08/21/20 10/30/20 History Allergies/Adverse Reactions Allergy/AdvReac Type Severity Reaction Status Date / Time bupropion [From Wellbutrin] AdvReac Mild rash Verified 10/30/20 07:34 loratadine [From Claritin-D] AdvReac Mild swelling Verified 10/30/20 07:34 pseudoephedrine AdvReac Mild swelling Verified 10/30/20 07:34 [From Claritin-D] Pertinent History/Comorbid Conditions* Medical History (Updated 10/15/20 @ 14:08 by Rohini Ware) Anxiety Arthritis COPD (chronic obstructive pulmonary disease) Depression Essential hypertension Post traumatic stress disorder Psychiatric care Stroke 2016, 2017 Surgical History (Updated 11/17/19 @ 14:31 by Michelle Alvarez DO) History of D&C Family History (Updated 08/21/20 @ 15:17 by Kya Iniguez RN) Diabetes Father Sister Family/Other CAD (coronary artery disease) Father Mother Grandfather Grandmother Dementia Father Hyperlipidemia Mother Grandfather Lung disease Grandfather Hypertension Father Mother Grandfather Stroke Father Denies family history of Clotting disorder Chronic kidney disease (CKD) Suicide Anesthesia complication Bleeding disorder Cancer Social History Smoking and tobacco status: former smoker Alcohol intake: former Current gender identity: Female Pertinent Exam Findings alert, oriented x 3, clear to auscultation bilaterally, regular rate & rhythm and procedure specific exam findings (Abdominal examination nontender nondistended soft obese) Recommendations Surgery/Procedure today (Colonoscopy with possible biopsy) Other Plans: Plan of care; After thorough history and physical examination and reviewing the chart, plan to perform screening colonoscopy. I discussed with the patient in details the risks,benefits,alternatives and indications.The risk of aspiration, bleeding, soft tissue injury, perforation of the colon and other potential concomitant complications were explained to the patient in details,also the potential need for Laproscoy/Laparotomy to repair any related complications including but not limited to colectomy and or Closotomy.The patient understood this well and did agree to proceed. Rationale was carefully and clearly discussed with the patient.Appropriate informed consent have been reviewed and signed All questions have been answered and all concerns have been addressed to patient's satisfaction. Verbal and written Instructions were given to the patient for colonoscopy prep Coding Level of Care Code Acute Real Estate Professor for Abebe Watson
--- NOTE | 2020-10-30 07:04 | ANES.PREANE2 ---
Pre-Anesthetic Assessment Pre-Anesthetic Assessment: Height/Weight: Height 1.73 m Weight 95.254 kg Preop Diagnosis: Screening colonoscopy Proposed Procedure: Operation Date: 10/30/20 08:30 Proposed Procedures p Colonoscopy 44586 z12.11(Not Applicable) - Nick Boggs MD Was Beta Efren taken within 24 hours: N/A Was Clonidine taken within 24 hours: N/A Social: Social History: No alcohol and No tobacco Exam: Pre-Anes Outpt Exam: alert, oriented x 3 and clear to auscultation bilaterally Additional Exam Findings (including area of procedure): tachy, regular Airway: Submandibular: WNL Cervical ROM: WNL MP: 2 Dentition: False CV/HEM: CV/HEM: Arrythmia and HTN Metabolic: Metabolic: DM Musc/skel: Musc/skel: Fibromyalgia and Lower Back Pain Neuropsych: Neuropsych: Anxiety, CVA and Depression Anesthetic Plan: ASA status: 3 Anesthesia: MAC Risk of > 500 ml blood loss (7ml/kg in children): No PFSH Anesthesia PFSH: Medical History (Updated 10/15/20 @ 14:08 by Rohini Ware) Anxiety Arthritis COPD (chronic obstructive pulmonary disease) Depression Essential hypertension Post traumatic stress disorder Psychiatric care Stroke 2015, 2017 Surgical History History of D&C Family History Father Hypertension CAD (coronary artery disease) Diabetes Dementia Stroke Mother CAD (coronary artery disease) Hypertension Hyperlipidemia Grandfather Hypertension Hyperlipidemia CAD (coronary artery disease) Lung disease Sister Diabetes Grandmother CAD (coronary artery disease) Family/Other Diabetes Denies family history of Clotting disorder Chronic kidney disease (CKD) Suicide Anesthesia complication Bleeding disorder Cancer Social History Smoking and tobacco status: former smoker Alcohol intake: former Current gender identity: Female Data Anesthesia Cardiac Studies: Echocardiogram 10/09/20
[2020-10-30 07:05] VITALS: BP 98/76; PULSE 97; RESP 18; TEMP 36.9; O2SAT 98
[2020-10-30] MEDS: sodium chloride 0.9% 1,000 ML 30 ML IV (07:26)
[2020-10-30 07:29] LABS: Glucose Point of Care 237 mg/dL (70-110)
[2020-10-30 08:35] VITALS: BP 107/48; PULSE 87; RESP 18; TEMP 36.1; O2SAT 95
--- NOTE | 2020-10-30 08:43 | P.PCN_ITS ---
PACU note Post-Anesthesia Exam: awake Disposition: discharged
--- NOTE | 2020-10-30 08:43 | PM.PACU ---
PACU note Post-Anesthesia Exam: awake Disposition: discharged
[2020-10-30 08:52] VITALS: BP 100/68; PULSE 87; RESP 16; O2SAT 100
--- NOTE | 2020-10-30 13:53 | ANE.PACU2 ---
Inpatient post-anesthesia follow up: Airway intact: Yes Vital signs: Temperature 97.0 F Pulse Rate 87 Respiratory Rate 16 Blood Pressure 100/68 Pulse Oximetry 100 Oxygen Delivery Me thod Room Air Oxygen Flow Rate 4 Fraction of Inspir ed Oxygen Hydration adequate: Yes Nausea and vomiting: No Pain level: 2 Mental status: Baseline
== END 2020-10-30 09:04 | disposition home or self-care (01) ==
PROVIDERS: PCP Family Medicine; Visit Provider Surgery
PROC: 0DJD8ZZ Inspection of Lower Intestinal Tract, Via Natural or Artificial Opening Endoscopic (ICD-10-PCS; CPT 45378; principal; 2020-10-30 08:30)
DX: Z12.11 Encounter for screening for malignant neoplasm of colon (principal); K57.30 Diverticulosis of large intestine without perforation or abscess without bleeding; D12.5 Benign neoplasm of sigmoid colon; Z79.82 Long term (current) use of aspirin; F41.9 Anxiety disorder, unspecified; M19.90 Unspecified osteoarthritis, unspecified site; J44.9 Chronic obstructive pulmonary disease, unspecified; F32.9 Major depressive disorder, single episode, unspecified; I10 Essential (primary) hypertension; Z86.73 Personal history of transient ischemic attack (TIA), and cerebral infarction without residual deficits; Z82.49 Family history of ischemic heart disease and other diseases of the circulatory system; Z83.3 Family history of diabetes mellitus; Z87.891 Personal history of nicotine dependence; M79.7 Fibromyalgia
CPT/HCPCS: 36416; 45385; 82962; 88305; 96360; 96361; J2704; J7030

== ENCOUNTER → 2020-11-21 14:28 | Outpatient (BNVA) | payer OTHER, SELFPAY ==
[2019-12-08 14:31] VITALS: BP 145/94; BMI 36.5
== END ==
PROVIDERS: PCP Family Medicine; Visit Provider Psychiatry & Neurology Psychiatry
DX: F41.9 Anxiety disorder, unspecified (principal)
CPT/HCPCS: 80061; 83036

== ENCOUNTER 2021-02-10 13:21 | Outpatient (CLI) | payer MEDICARE, MEDICAID, SELFPAY ==
[2020-11-25 11:46] VITALS: BP 114/71; BMI 31.9
--- NOTE | 2021-02-10 13:36 | CT_ITS ---
WS: [id number] LDCT LUNG CANCER SCREENING HISTORY: HX OF TOBACCO USE TECHNIQUE: Axial imaging performed from the apices to 1 cm below the costophrenic angles. Coronal and sagittal reformats are submitted with axial MIP series. All CT scans at [facility] use at least one of these dose optimization techniques: automated exposure control; mA and/or kV adjustment per patient size (includes targeted exams where dose is matched to clinical indication); or iterativ e reconstruction. DLP: 60.13 mGy.cm DIvol: 1.58 mGy COMPARISON: 05/28/2020 Diagnostic quality: Satisfactory Lung Nodules: No significant change in the bilateral subcentimeter pulmonary nodules. The largest nod ule measures 5 mm in the superior segment LEFT lower lobe. There are additional nodules which are sma ller and unchanged. Mild interstitial thickening and reticulation noted along the azygos esophageal r ecess. No interval change. No pneumonia. Lungs: Mild pulmonary hyperinflation from emphysema. Heart: Normal size heart. Other findings: Mild atherosclerosis aorta. Normal size pulmonary artery. No adenopathy. Small hiatal hernia. CT/CT lung screening [id number] IMPRESSION: LUNG-RADS: 2-Benign Appearance or Behavior FOLLOW UP: 12 Month: Continue annual screening with LDCT OTHER FINDINGS (S) None.
== END 2021-02-10 13:22 | disposition home or self-care (01) ==
LOC: RAD 13:27
PROVIDERS: PCP Family Medicine; Visit Provider Family Medicine
DX: Z12.2 Encounter for screening for malignant neoplasm of respiratory organs (principal); Z87.891 Personal history of nicotine dependence; I70.0 Atherosclerosis of aorta; K44.9 Diaphragmatic hernia without obstruction or gangrene
CPT/HCPCS: 71271

== ENCOUNTER → 2021-02-11 13:07 | Outpatient (BNVA) | payer MEDICARE, MEDICAID, SELFPAY ==
[2020-11-25 11:46] VITALS: BP 114/71; BMI 31.9
== END ==
PROVIDERS: PCP Family Medicine; Visit Provider Psychiatry & Neurology Psychiatry
DX: F33.1 Major depressive disorder, recurrent, moderate (principal); F41.9 Anxiety disorder, unspecified
CPT/HCPCS: 99214

== ENCOUNTER → 2022-02-26 10:52 | Outpatient (BNVA) | payer OTHER, SELFPAY ==
[2020-11-25 11:46] VITALS: BP 114/71; BMI 31.9
== END ==
PROVIDERS: PCP Family Medicine; Visit Provider Psychiatry & Neurology Psychiatry
DX: F32.9 Major depressive disorder, single episode, unspecified (principal)
CPT/HCPCS: 80061; 83036

== ENCOUNTER 2022-09-09 12:59 | Outpatient (CLI) | payer MEDICARE, MEDICAID, SELFPAY ==
[2022-03-17 16:37] VITALS: BP 177/83; BMI 36.6
--- NOTE | 2022-09-09 13:11 | CT_ITS ---
WS: [id number] LDCT LUNG CANCER SCREENING HISTORY: HX OF TOBACCO USE TECHNIQUE: Axial imaging performed from the apices to 1 cm below the costophrenic angles. Coronal and sagittal reformats are submitted with axial MIP series. All CT scans at [facility] use at least one of these dose optimization techniques: automated exposure control; mA and/or kV adjustment per patient size (includes targeted exams where dose is matched to clinical indication); or iterativ e reconstruction. DLP: 78.70 mGy.cm DIvol: Mean CTDIvol: 1.60 (mGy) COMPARISON: 02/10/2021, 05/28/2020 Diagnostic quality: Satisfactory Lungs: Mild pulmonary hyperinflation. There are numerous, bilateral, subcentimeter and noncalcified l ower lobe pulmonary nodules. The largest measures 6 mm towards the superior segment LEFT lower lobe. These nodules are unchanged. Heart: Normal size heart with no pericardial effusion.. Other findings: Mild atherosclerosis aorta. No mediastinal or hilar adenopathy. Small hiatal hernia. Hepatic steatosis. Cholelithiasis without acute cholecystitis. Mild nodularity and thickening of the LEFT adrenal gland. CT/CT lung screening [id number] IMPRESSION: LUNG-RADS: 2-Benign Appearance or Behavior FOLLOW UP: 12 Month: Continue annual screening with LDCT OTHER FINDINGS (S MODIFIER): None.
--- NOTE | 2022-09-09 13:19 | MM_ITS ---
WS: [id number] BILATERAL 3D TOMOSYNTHESIS DIGITAL SCREENING MAMMOGRAPHY WITH CAD CLINICAL INFORMATION: SCREENING HISTORY: Screening mammogram. No current complaints. COMPARISON: 2020 TECHNIQUE: Bilateral CC and MLO views. FINDINGS: Scattered fibroglandular densities bilaterally. No suspicious focal mass, asymmetry, calcifications, or architectural distortion. No evidence of malignancy. A few incidental punctate calcifications. MM/[place] [id number] IMPRESSION: BI-RADS: 2-Benign FOLLOW UP: 1 Year Follow-up Recommend return to annual screening mammography.
== END 2022-09-09 13:00 | disposition home or self-care (01) ==
PROVIDERS: PCP Family Medicine; Visit Provider Family Medicine
DX: Z12.31 Encounter for screening mammogram for malignant neoplasm of breast (principal); Z12.2 Encounter for screening for malignant neoplasm of respiratory organs; Z87.891 Personal history of nicotine dependence
CPT/HCPCS: 71271; 77063; 77067

== ENCOUNTER → 2023-03-30 14:53 | Outpatient (BNVA) | payer OTHER, SELFPAY ==
[2022-03-17 16:37] VITALS: BP 177/83; BMI 36.6
== END ==
PROVIDERS: PCP Family Medicine; Visit Provider Nurse Practitioner Psychiatric/Mental Health
DX: F41.9 Anxiety disorder, unspecified (principal)
CPT/HCPCS: 80061; 83036

== ENCOUNTER 2023-11-03 10:06 | Outpatient (CLI) | payer MEDICARE, MEDICAID, SELFPAY ==
[2023-04-05 15:50] VITALS: BP 129/74; BMI 28.5
--- NOTE | 2023-11-03 10:11 | MM_ITS ---
WS: [id number] Bilateral screening 3D tomosynthesis digital mammogram, 11/03/2023 10:26 AM Clinical Data: SCREENING Comparison: 09/09/2022, 06/25/2020 Findings: No spiculated masses or clustered calcifications are seen. There are no secondary signs of carcinoma . There is scattered fibroglandular tissue. Lymph nodes are noted in both axilla. MM/MM scr BI tomosynthesis [id number] Impression: Negative bilateral mammogram unchanged. Recommend annual screening mammograms. BIRADS: 1 - Negative. FOLLOW UP: 1 Year Follow-up DENSITY: The breasts are almost entirely fatty. The CAD billet checker was used
== END 2023-11-03 10:07 | disposition home or self-care (01) ==
LOC: RAD 10:07
PROVIDERS: PCP Family Medicine; Visit Provider Family Medicine
DX: Z12.31 Encounter for screening mammogram for malignant neoplasm of breast (principal); R92.323 Mammographic fibroglandular density, bilateral breasts
CPT/HCPCS: 77063; 77067

== ENCOUNTER → 2024-04-03 15:53 | Outpatient (BNVA) | payer MEDICARE, MEDICAID, SELFPAY ==
[2023-04-05 15:50] VITALS: BP 129/74; BMI 28.5
== END ==
PROVIDERS: PCP Family Medicine; Visit Provider Emergency Medicine
DX: R06.02 Shortness of breath (principal); R05.9 Cough, unspecified
CPT/HCPCS: 71046

== ENCOUNTER → 2024-04-24 09:09 | Outpatient (BNVA) | payer OTHER, SELFPAY ==
[2024-04-18 16:41] VITALS: BP 129/74; BMI 28.5
== END ==
PROVIDERS: PCP Family Medicine; Visit Provider Nurse Practitioner Psychiatric/Mental Health
DX: F33.1 Major depressive disorder, recurrent, moderate (principal); F41.9 Anxiety disorder, unspecified
CPT/HCPCS: 80061; 83036